=== PATIENT | male | born 2000 | race African-American/Black ===

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

== ENCOUNTER 2022-03-31 07:54 | Emergency (ER) | payer OTHER ==
[~2022-03-31] VITALS: Ht 182.9 cm; Wt 67.0 kg
[2022-03-31 10:42] VITALS: BP 123/82
[2022-03-31] MEDS ORDERED: IBUPROFEN 600MG TABLET PO ONE (10:45)
[2022-03-31] MEDS ORDERED: IBUP-2029 MT (12:52)
[2022-03-31] MEDS ORDERED: HYDR-4001 MT (12:52)
== END 2022-03-31 13:20 | disposition home or self-care (01) ==
LOC: ER 08:53
DX: S60.021A Contusion of right index finger without damage to nail, initial encounter (principal); F12.10 Cannabis abuse, uncomplicated; X58.XXXA Exposure to other specified factors, initial encounter; Y93.89 Activity, other specified; Y92.89 Other specified places as the place of occurrence of the external cause; Y99.8 Other external cause status
CPT/HCPCS: 73140; 99283

== ENCOUNTER 2023-04-02 17:50 | Emergency (ER) | payer OTHER ==
[~2023-04-02] VITALS: Ht 177.8 cm; Wt 69.0 kg
[~2023-04-02 17:50] MED LIST: HYDR-4001 MT; IBUP-2029 MT
[2023-04-02 17:59] VITALS: O2SAT 100
[2023-04-02] MEDS ORDERED: ONDANSETRON 4MG ODT PO STA (18:17)
[2023-04-02] MEDS ORDERED: ACETAMINOPHEN 325MG TABLET PO STA (18:17)
[2023-04-02 20:04] LABS: HEMATOCRIT. 41.4 % (42.0-52.0); HEMOGLOBIN. 13.9 g/dL (14.0-18.0); MEAN CORPUSCULAR HEMOGLOBIN 33.6 pg (28.0-32.0); MEAN CORPUSCULAR HGB CONC 33.6 g/dL (31.0-37.0); MEAN CORPUSCULAR VOLUME 99.9 fL (80.0-94.0); MEAN PLATELET VOLUME 8.8 fl (7.4-10.4); PLATELET 228 x1000/uL (130-400); RED BLOOD CELL COUNT 4.15 mill/uL (4.7-6.1); RED CELL DISTRIBUTION WIDTH 13.2 % (11.6-14.6); WHITE BLOOD COUNT 14.8 x1000/uL (4.5-11.0)
[2023-04-02 20:07] LABS: DIFFERENTIAL COMMENT 1
[2023-04-02 20:18] LABS: CHLORIDE 108 mEq/L (98-107); INDEX HEMOLYSI 1 (1-3); INDEX ICTERIC 1 (1-4); INDEX LIPEMIC 1 (1-3); SODIUM 141 mEq/L (136-145)
[2023-04-02 20:24] LABS: PLATELET ESTIMATE NORMAL
[2023-04-02 20:28] LABS: ALANINE AMINOTRANSFERASE 193 IU/L (13-61); ALBUMIN 3.9 g/dL (3.4-5.0); ASPARTATE AMINOTRANSFERASE 364 IU/L (15-37); BILIRUBIN TOTAL 1.1 mg/dL (0.1-1.0); CALCIUM 8.8 mg/dL (8.5-10.1); CARBON DIOXIDE 28 mEq/L (21-32); CREATININE 0.9 mg/dL (0.6-1.3); ETHANOL BLOOD < 10 mg/dL (<10); GLUCOSE 69 mg/dL (70-105); PROTEIN TOTAL 7.2 g/dL (6.0-8.3); UREA NITROGEN BLOOD 10 mg/dL (7-21)
[2023-04-02] MEDS ORDERED: FAMO-135 MT (22:22)
[2023-04-02 23:00] VITALS: BP 110/65; PULSE 82; RESP 20; TEMP 98.6
== END 2023-04-02 23:00 | disposition home or self-care (01) ==
LOC: ER 17:50
DX: R10.11 Right upper quadrant pain (principal); R74.01 Elevation of levels of liver transaminase levels; F12.10 Cannabis abuse, uncomplicated
CPT/HCPCS: 80053; 80320; 83690; 85025; 36415; 71045; 74176; 76705; 99284; Z7610; G0480